=== PATIENT | female | born 1990 | race Caucasian/White ===

== ENCOUNTER 2020-05-13 05:31 | Emergency (ER) | payer OTHER, SELFPAY ==
--- NOTE | ~2020-05-13 | CT_ITS ---
EXAMINATION: CT abdomen pelvis w con INDICATION: Right lower quadrant pain TECHNIQUE: Computed tomographic images of the abdomen and pelvis were obtained after the administrati on of 100 cc of Omnipaque 350 intravenous contrast. The dose-length product (DLP) was 840.33 mGy-cm. Automated exposure control and iterative reconstruction technique were employed. COMPARISON: None available FINDINGS: Minimal dependent atelectasis is present in the lung bases. The heart size is normal. Calci fied mediastinal lymph nodes are consistent with old granulomatous disease. The liver is diffusely lo w in attenuation when compared with the spleen, consistent with hepatic steatosis. The spleen, pancre as, gallbladder, and adrenal glands are normal. The kidneys are unremarkable. There is a 2 mm at the right ureterovesicular junction which causes mild right hydroureter. No pathologically enlarged abdom inal or pelvic lymph nodes are identified. There is no free intraperitoneal gas or evidence of bowel obstruction. IMPRESSION: 1. 2 mm stone in the right ureterovesicular junction causing mild right hydroureter. Reviewed, dictated and finalized at location [facility]. IMPRESSION: 1. 2 mm stone in the right ureterovesicular junction causing mild right hydrour eter.
[2020-05-13 05:35] VITALS: BP 152/99; PULSE 86; RESP 18; TEMP 36.8; O2SAT 100
--- NOTE | 2020-05-13 05:45 | ED.ABDPAIN ---
HPI - Abdominal Pain General Chief Complaint: Abdominal Pain <Enrico Nolan MD - Last Filed: 05/16/20 05:52> Stated Complaint: lower abd pain <Enrico Nolan MD - Last Filed: 05/16/20 05:52> Time Seen by Provider: 05/13/20 05:36 <Enrico Nolan MD - Last Filed: 05/16/20 05:52> History of Present Illness HPI narrative: Sharp RLQ pain since early this morning. Awoke her from sleep. Radiates to the back. Associated with nausea. She does report urinary frequency for the past few days. No fever. No prior surgery. <Enrico Nolan MD - Last Filed: 05/16/20 05:52> Related Data Allergies/Adverse Reactions: Allergies Allergy/AdvReac Type Severity Reaction Status Date / Time No Known Allergies Allergy Verified 05/13/20 05:39 <Enrico Nolan MD - Last Filed: 05/16/20 05:52> Review of Systems Review of Systems: All systems reviewed & are unremarkable except as noted in HPI and below <Enrico Nolan MD - Last Filed: 05/16/20 05:52> Constitutional: Constitutional: Denies fever(s) <Enrico Nolan MD - Last Filed: 05/16/20 05:52> Cardiovascular: Cardiovascular: Denies chest pain <Enrico Nolan MD - Last Filed: 05/16/20 05:52> Respiratory: Respiratory: Denies dyspnea <Enrico Nolan MD - Last Filed: 05/16/20 05:52> Gastrointestinal: Gastrointestinal: Reports abdominal pain and Reports nausea <Enrico Nolan MD - Last Filed: 05/16/20 05:52> Genitourinary: Genitourinary: Denies hematuria, Reports nocturia and Denies dysuria <Enrico Nolan MD - Last Filed: 05/16/20 05:52> [facility] Social History Social History: Social History (Updated 05/13/20 @ 05:55 by Enrico Nolan MD) Smoking status: Never smoker <Enrico Nolan MD - Last Filed: 05/16/20 05:52> Exam Const: General: healthy appearing, no acute distress and alert <Enrico Nolan MD - Last Filed: 05/16/20 05:52> Orientation/consciousness: patient oriented x3 <Enrico Nolan MD - Last Filed: 05/16/20 05:52> HENMT: Head: normal to inspection <Enrico Nolan MD - Last Filed: 05/16/20 05:52> Neck: Neck: normal visual inspection and no lymphadenopathy <Enrico Nolan MD - Last Filed: 05/16/20 05:52> Chest: Chest palpation & inspection: no tenderness <Enrico Nolan MD - Last Filed: 05/16/20 05:52> Resp: Effort & Inspection: normal respiratory effort <Enrico Nolan MD - Last Filed: 05/16/20 05:52> Auscultation: clear to auscultation bilaterally, no rales, no rhonchi and no wheezes <Enrico Nolan MD - Last Filed: 05/16/20 05:52> Cardio: Jugular venous distension: no JVD <Enrico Nolan MD - Last Filed: 05/16/20 05:52> Rate: regular rate <Enrico Nolan MD - Last Filed: 05/16/20 05:52> Rhythm: regular rhythm <Enrico Nolan MD - Last Filed: 05/16/20 05:52> Heart sounds: no murmurs <Enrico Nolan MD - Last Filed: 05/16/20 05:52> GI: Inspection: non-distended <Enrico Nolan MD - Last Filed: 05/16/20 05:52> GI Palp: Yes Soft to palpation and No Tenderness to palpation present (GI) <Enrico Nolan MD - Last Filed: 05/16/20 05:52> Skin: General skin exam: normal color <Enrico Nolan MD - Last Filed: 05/16/20 05:52> Neuro: General: patient oriented x3 and moves all extremities <Enrico Nolan MD - Last Filed: 05/16/20 05:52> Speech: normal speech <Enirco Nolan MD - Last Filed: 05/16/20 05:52> Extrem: General: no edema <Enrico Nolan MD - Last Filed: 05/16/20 05:52> Psych: Appearance: well kempt <Enrico Nolan MD - Last Filed: 05/16/20 05:52> Affect: normal affect <Enrico Nolan MD - Last Filed: 05/16/20 05:52> Course Reevaluation(s) Reevaluation #1: Patient states that she feels alot better. I discussed with her and mother that she was found to have a distal ureteral calculus. I have answered all questions and concerns. She is ready a
[2020-05-13 05:57] LABS: Basophils Absolute Auto 0.1 K/mm3 (0.0-0.1); Basophils Percent Auto 1.2 % (0.2-1.2); Eosinophils Absolute Auto 0.2 K/mm3 (0-0.3); Hematocrit 43.8 % (37.0-47.0); Hemoglobin 14.1 g/dL (12.0-15.0); Immature Granulocyte Absolute 0.03 K/mm3 (0.00-0.031); Immature Granulocyte Percent A 0.3 % (0-0.5); Mean Corpuscular HGB Conc 32.2 g/dl (32-36); Mean Corpuscular Hemoglobin 28.1 pg (26-34); Mean Corpuscular Volume 87.3 fl (80-100); Mean Platelet Volume 10.2 fl (7.4-10.4); Monocytes Absolute Auto 0.9 K/mm3 (0.1-0.6); Monocytes Percent Auto 10.2 % (2.6-8.5); Neutrophils Absolute Auto 4.5 K/mm3 (1.3-6.7); Neutrophils Percent Auto 48.3 % (45.5-73.1); Platelet Count Result 323 k/mm3 (150-375); Red Blood Count 5.02 M/mm3 (4.2-5.4); Red Cell Distribution Width 13.2 % (11.5-14.5); White Blood Count 9.2 K/mm3 (4.5-10.0)
[2020-05-13] MEDS: KETOROLAC 30 MG/ML VIAL (*BKC) IV PUSH (05:59)
[2020-05-13 06:08] LABS: Alanine Aminotransferase 22 U/L (4-35); Albumin Level 4.3 g/dL (3.5-5.1); Alkaline Phosphatase 73 U/L (38-126); Aspartate Amino Transferase 29 U/L (14-36); Bilirubin,Total 1.1 mg/dL (0.2-1.3); Blood Urea Nitrogen 10 mg/dL (7-17); Carbon Dioxide 22 mmol/L (22-30); Chloride 106 mmol/L (98-107); Estimated Glomerular Filt Rate > 60; Glucose 107 mg/dL (65-105); Lipase 95 U/L (23-300); Sodium 136 mmol/L (137-145)
[2020-05-13 06:18] LABS: Add Urine Microscopic? NO; Appearance Urine Clear (Clear); Bilirubin Urine Negative (Negative); Blood Urine Negative (Negative); Color Urine Yellow (Yellow); Glucose Urine UA Negative (Negative); Ketones Urine Negative (Negative); Leukocyte Esterase Ur Negative LEU/UL (Negative); Nitrate Urine Negative (Negative); Protein Urine Negative (Negative); Specific Grav Ur 1.013 (1.001-1.035); Urobilinogen Urine Negative mg/dL (<2.0)
[2020-05-13 08:30] VITALS: BP 148/86; PULSE 80; RESP 20; O2SAT 100
== END 2020-05-13 08:32 | disposition home or self-care (01) ==
PROVIDERS: Emergency Medicine; Emergency Provider General Practice
DX: N13.2 Hydronephrosis with renal and ureteral calculous obstruction (principal)
CPT/HCPCS: 36415; 74177; 80053; 81003; 81025; 83690; 85025; 96374; 99284; J1885; Q9967

== ENCOUNTER 2021-01-04 11:18 | Outpatient (CLI) | payer OTHER, SELFPAY ==
--- NOTE | ~2021-01-04 | XR_ITS ---
XR hysterosalpingogram DATE: 01/04/2021 13:01 INDICATION: Pro-creative management TECHNIQUE: Fluoroscopy was provided for hysterosalpingogram procedure 0.7 minutes fluoroscopy time Image calculus 6 DAP: 12.869. COMPARISON: None FINDINGS: The uterine cavity appears normally shaped. There is a filling defect in the uterine cavity which might represent polyp or air bubble. Consider correlation with pelvic ultrasound. The fallopian tubes are opacified bilaterally and are of normal caliber. There is bilateral free jennie toneal spillage. IMPRESSION: Polyp versus air bubble and uterine cavity; consider sonographic correlation Patent fallopian tubes Reviewed, dictated and finalized at [facility]. Reviewed, dictated and finalized at location [facility]. [employer] IMPRESSION: Polyp versus air bubble and uterine cavity; consider sonographic co rrelation Patent fallopian tubes
[2021-01-04 12:22] LABS: Beta HCG Quantitative < 2.39 mIU/ML
--- NOTE | 2021-01-04 13:23 | PM.PROC ---
Procedure Note - Detailed Date of procedure: 01/04/21 Pre-op diagnosis: procreative management Post-op diagnosis: same Procedure performed: Hysterosalpingogram Description of procedure: Patient was on the fluoroscopic table. A speculum was placed in the vagina. The cervix was cleaned with Betadine. A catheter was placed the intrauterine cavity and the balloon was inflated at the tip of the catheter. The radiologist was present and began to capture images. Radiopaque dye was then instilled into the intrauterine cavity. The above findings were noted. When dye injection was completed. The balloon catheter was collapsed and the catheter was withdrawn. A final image the into atrial cavity was captured. The speculum had been was drawn prior to injection of the dye. Speculum and catheter were removed completely. The procedure was terminated. Anesthesia: none Surgeon: Tanja Schneider MD Estimated blood loss (mL): 0 Drains: No Packing: No Pathology: none sent Complications: No immediate complications Condition: stable Findings: Both tubes were patent, radiopaque dye was observed spilling into the pelvic cavity bilaterally at the end of the tubes. There was a normal-appearing endometrial cavity..
== END 2021-01-04 11:19 | disposition home or self-care (01) ==
PROVIDERS: Visit Provider Obstetrics & Gynecology
DX: Z01.89 Encounter for other specified special examinations (principal); Z31.9 Encounter for procreative management, unspecified
CPT/HCPCS: 36415; 58340; 74740; 84702

== ENCOUNTER 2022-06-24 07:08 | Inpatient (IN) | payer OTHER, SELFPAY ==
[2022-06-24] VITALS (18 sets, daily range): BP systolic 101–119; BP diastolic 64–82; PULSE 74–98; TEMP 36.3–36.6; BMI 34.3
--- OUTSIDE RECORDS SUMMARY | 2022-06-24 07:13 | XMS_ITS | Encounter Summary ---
:1990 Author Care Team Providers Name Role Phone Maximino Hernandez Primary Care Provider [phone] Reason for Visit None recorded. Assessment and Plan 1. IVF - in-vitro fertilization pregnan cy ? US, obstetric, biophysical profile + non-stress test Discussion Note: None recorded.Patient educational handouts: No information available. Plan of Care Reminders Provider Appointments Nst 06/28/2022 Nst, , EQUIP 1:30PM ? U/S OB BPP 06/28/2022 Ultrasound Two, TECH 2:00PM ? Ob Routine 06/28/2022 Jihan Yoli Ruggieroe , CNM 2:30PM ? U/S OB BPP 07/05/2022 Ultrasound Two, TECH 2:30PM ? Nst 07/05/2022 Nst, , EQUIP 2:00PM ? Ob Routine 07/05/2022 Jihan E Cowden , CNM 3:00PM ? Ob Routine 07/11/2022 Jihan E Sonali , CNM 8:45AM ? U/S OB BPP 07/12/2022 Ultrasound Two, TECH 1:30PM ? Nst 07/12/2022 Nst, , EQUIP 1:00PM Lab None recorded. ? ? Referral None recorded. ? ? Procedures None recorded. ? ? Surgeries None recorded. ? ? Imaging US, Obstetric, Biophysical 06/21/2022 Marycarmen alcantara Profile + Non-stress Test Medications Name Start Date ? ? aspirin ? + DHA ? Medications Administered None recorded. Vitals None recorded. Results Lab Results
--- OUTSIDE RECORDS SUMMARY | 2022-06-24 07:13 | XMS_ITS ---
:1990 Author Care Team Providers Name Role Phone LARON ANTUNEZ Primary Care Provider [phone] Allergies Code Code System Name Reaction Severity Status Onset NKDA ? Notes: NO KNOWN ALLERGIES (Active) Com ment: Location: [facility]; Medications Name Status Start Date Stop Date ? ? adapalene 0.1 % topical cream Completed ? amoxicillin 250 mg capsule Completed ? 10/10 amoxicillin 500 mg capsule Completed ? 10/10 ascorbic acid (vitamin C) 500 mg chewable tablet Completed ? 01/25/2022 aspirin Active ? Not available aspirin 81 mg tablet,delayed release Completed ? 10/10/2020 azithromycin 250 mg tablet Completed ? 01/25 cholecalciferol (vitamin D3) 50 mcg (2,000 unit) tablet Complete d ? 01/25/2022 chorionic gonadotropin, human 10,000 unit intramuscular Complete d ? 01/25/2022 solution clomiphene citrate 50 mg tablet Completed ? 11/16/2020 Co Q-10 Completed ? 01/25/2022 cyclobenzaprine 5 mg tablet Completed ? 03/31 DOK 100 mg capsule Completed ? 11/16/2020 Gonal-F RFF Redi-Ject 900 unit/1.5 mL subcutaneous pen Completed ? 01/25/2022 injector hydrocodone 5 mg-acetaminophen 325 mg tablet Completed ? 10/10/2020 ibuprofen 600 mg tablet Completed ? 10/10/20 20 itraconazole 100 mg capsule Completed ? 01/02 TAKE 1 CAPSULE BY MOUTH TWICE DAILY letrozole 2.5 mg tablet Completed ? 05/30/20 21 TAKE 2 TABLETS BY MOUTH DAILY ON DAYS 5 THROUGH 9 leuprolide 1 mg/0.2 mL subcutaneous kit Completed ? 01/25/2022 Menopur 75 unit subcutaneous solution Completed ? 01/25/2022 metformin 500 mg table
--- OUTSIDE RECORDS SUMMARY | 2022-06-24 07:13 | XMS_ITS | Encounter Summary ---
:1990 Author Care Team Providers Name Role Phone Maximino Hernandez Primary Care Provider [phone] Reason for Visit None recorded. Assessment and [...] 2:00PM ? Ob Routine 07/05/2022 Jihan E Sonali , CNM 3:00PM ? Ob Routine 07/11/2022 Jihan Yoli SnowLadoga , CNM 8:45AM ? U/S OB BPP 07/12/2022 Ultrasound Two, TECH 1:30PM ? Nst 07/12/2022 Nst, , EQUIP 1:00PM Lab None recorded. ? ? Referral None recorded. ? ? Procedures None recorded. ? ? Surgeries None recorded. ? ? Imaging US, Obstetric, Biophysical 06/07/2022 Marycarmen alcantara Profile + Non-stress Test Medications Name Start Date ? ? aspirin ? + DHA ? Medications Administered None recorded. Vitals None recorded. Results Lab Results
--- OUTSIDE RECORDS SUMMARY | 2022-06-24 07:13 | XMS_ITS | Encounter Summary ---
:1990 Author Care Team Providers Name Role Phone Maximino Hernandez Primary Care Provider [phone] Reason for Visit OB visit OB [id number] EDC 07/04/2022 LMP 09/29/2021 e mbro transfer 10/16/2021 Assessment and Plan Assessment Note Patient is _37__weeks . Discuss ed plan. 1. Routine care Discussion Note: None recorded.Patient educational handouts: No information available. Plan of Care Reminders Provider Appointments Nst 06/28/2022 1:30PM Nst, , EQUIP ? U/S OB BPP 06/28/2022 2:00PM Ultrasound T wo, TECH ? Ob Routine 06/28/2022 2:30PM Jihangio wallace, CNM ? U/S OB BPP 07/05/2022 2:30PM Ultrasound T wo, TECH ? Nst 07/05/2022 2:00PM Nst, , EQUIP ? Ob Routine 07/05/2022 3:00PM Jihan wallace, CNM ? Ob Routine 07/11/2022 8:45AM Jihan wallace, CNM ? U/S OB BPP 07/12/2022 1:30PM Ultrasound T wo, TECH ? Nst 07/12/2022 1:00PM Nst, , EQUIP Lab None recorded. ? ? Referral None recorded. ? ? Procedures None recorded. ? ? Surgeries None recorded. ? ? Imaging None recorded. ? ? Medications Name Start Date ? ? aspirin ? + DHA ? Medications Administered None recorded. Vitals Height Weight BMI Blood Pressure 5 ft 6.75 in 192 lbs 30.3 kg/m2 123/78 mm[Hg] Results Lab Results None recorded. Allergies Code Code System Name Reaction Severity Onset NKDA ? ? ? Notes: NO KNOWN ALLERGIES (Active) Com ment: Location: [facility]
--- OUTSIDE RECORDS SUMMARY | 2022-06-24 07:13 | XMS_ITS | Encounter Summary ---
:1990 Author Care Team Providers Name Role Phone Maximino Hernandez Primary Care Provider [phone] Reason for Visit None recorded. Assessment and Plan 1. Pre-existing maternal disease compli cating ? US, obstetric, follow-up Discussion Note: None recorded.Patient educational handouts: No information available. Plan of Care Reminders Provider Appointments Nst 06/28/2022 1:30PM Nst, , EQUIP ? U/S OB BPP 06/28/2022 2:00PM Ultrasound T wo, TECH ? Ob Routine 06/28/2022 2:30PM Jihan E gle, CNM ? U/S OB BPP 07/05/2022 2:30PM Ultrasound T wo, TECH ? Nst 07/05/2022 2:00PM Nst, , EQUIP ? Ob Routine 07/05/2022 3:00PM Jihan E Prin gle, CNM ? Ob Routine 07/11/2022 8:45AM Jihan E gle, CNM ? U/S OB BPP 07/12/2022 1:30PM Ultrasound T wo, TECH ? Nst 07/12/2022 1:00PM Nst, , EQUIP Lab None recorded. ? ? Referral None recorded. ? ? Procedures None recorded. ? ? Surgeries None recorded. ? ? Imaging US, Obstetric, Follow-up 06/14/2022 Mirella velez Medications Name Start Date ? ? aspirin ? + DHA ? Medications Administered None recorded. Vitals None recorded. Results Lab Results None recorded. Allergies Code Code System Name Reaction Severity Onset NKDA ? ? ? Notes: NO KNOWN ALLERGIES (Active) Com ment: Location: [facility]; Problems Name Status Onset Date Source ? Active 01/01/2022 ? Acute COVID-19 Active 04/11/2022 ? Uterine Fibroids Affecting Ac
--- OUTSIDE RECORDS SUMMARY | 2022-06-24 07:13 | XMS_ITS | Encounter Summary ---
:1990 Author Care Team Providers Name Role Phone Maximino Hernandez Primary Care Provider [phone] Reason for Visit None recorded. Assessment and Plan 1. IVF - in-vitro fertilization pregnan cy ? non-stress test Discussion Note: None recorded.Patient educational handouts: No information available. Plan of Care Reminders Provider Appointments Nst 06/28/2022 1:30PM Nst, , EQUIP ? U/S OB BPP 06/28/2022 2:00PM Ultrasound T wo, TECH ? Ob Routine 06/28/2022 2:30PM Jihan E Prin gle, CNM ? /S OB BPP 07/05/2022 2:30PM Ultrasound T wo, TECH ? Nst 07/05/2022 2:00PM Nst, , EQUIP ? Ob Routine 07/05/2022 3:00PM Jihan E Prin gle, CNM ? Ob Routine 07/11/2022 8:45AM Jihan E Prin gle, CNM ? U/S OB BPP 07/12/2022 1:30PM Ultrasound T wo, TECH ? Nst 07/12/2022 1:00PM Nst, , EQUIP Lab None recorded. ? ? Referral None recorded. ? ? Procedures None recorded. ? ? Surgeries None recorded. ? ? Imaging Non-stress Test 06/14/2022 [facility] Medications Name Start Date ? ? aspirin ? + DHA ? Medications Administered None recorded. Vitals None recorded. Results Lab Results None recorded. Allergies Code Code System Name Reaction Severity Onset NKDA ? ? ? Notes: NO KNOWN ALLERGIES (Active) Com ment: Location: [facility]; Problems Name Status Onset Date Source ? Active 01/01/2022 ? Acute COVID-19 Active 04/11/2022 ? Uterine Fibroids Affecting Active ? ?
--- OUTSIDE RECORDS SUMMARY | 2022-06-24 07:13 | XMS_ITS | Encounter Summary ---
:1990 Author Care Team Providers Name Role Phone Maximino Hernandez Primary Care Provider [phone] Reason for Visit None recorded. Assessment and Plan 1. COVID-19 ? US, obstetric, follow-up Discussion Note: None recorded.Patient educational handouts: No information available. Plan of Care Reminders Provider Appointments Nst 06/28/2022 1:30PM Nst, , EQUIP ? U/S OB BPP 06/28/2022 2:00PM Ultrasound T wo, TECH ? Ob Routine 06/28/2022 2:30PM Jihan E gle, CNM ? /S OB BPP 07/05/2022 [...] recorded. ? ? Imaging US, Obstetric, Follow-up 05/16/2022 Mirella velez Medications Name Start Date ? ? aspirin ? + DHA ? Medications Administered None recorded. Vitals None recorded. Results Lab Results None recorded. Allergies Code Code System Name Reaction Severity Onset NKDA ? ? ? Notes: NO KNOWN ALLERGIES (Active) Com ment: Location: [facility]; Problems Name Status Onset Date Source ? Active 01/01/2022 ? Acute COVID-19 Active 04/11/2022 ? Uterine Fibroids Affecting Active ? ?
--- OUTSIDE RECORDS SUMMARY | 2022-06-24 07:13 | XMS_ITS | Encounter Summary ---
:1990 Author Care Team Providers Name Role Phone Maximino Hernandez Primary Care Provider [phone] Reason for Visit OB visit Assessment and Plan Assessment Note Patient is ___weeks . Discussed plan. 1. Routine care Discussion Note: None [...] BMI Blood Pressure 5 ft 6.75 in 195 lbs 30.8 kg/m2 115/78 mm[Hg] Results Lab Results None recorded. Allergies Code Code System Name Reaction Severity Onset NKDA ? ? ? Notes: NO KNOWN ALLERGIES (Active) Com ment: Location: [facility]; Problems Name Status Onset Date Source ?
--- OUTSIDE RECORDS SUMMARY | 2022-06-24 07:13 | XMS_ITS | Encounter Summary ---
:1990 Author Care Team Providers Name Role Phone Maximino Hernandez Primary Care Provider [phone] Reason for Visit OB visit OB [id number] EDC 07/04/2022 LMP 09/29/2021 Assessment and Plan Assessment Note Patient is _38__weeks . Discuss ed plan. 1. Routine care [...] , EQUIP ? Ob Routine 07/05/2022 3:00PM Jihangio wallace, CNM ? Ob Routine 07/11/2022 8:45AM [...] ft 6.75 in 195 lbs 30.8 kg/m2 125/79 mm[Hg] Results Lab Results None recorded. Allergies Code Code System Name Reaction Severity Onset NKDA ? ? ? Notes: NO KNOWN ALLERGIES (Active) Com ment: Location: [facility]; Problems
--- OUTSIDE RECORDS SUMMARY | 2022-06-24 07:13 | XMS_ITS | Encounter Summary ---
:1990 Author Care Team Providers Name Role Phone Maximino Hernandez Primary Care Provider [phone] Reason for Visit OB visit OB [id number] EDC 07/04/2022 Assessment and Plan Assessment Note Patient is ___weeks . Discussed plan. 1. Routine care Discussion Note: None recorded.Patient educational handouts: No information available. Plan of Care Reminders Provider Appointments Nst 06/28/2022 1:30PM Nst, , EQUIP ? U/S OB BPP 06/28/2022 2:00PM Ultrasound T wo, TECH ? Ob Routine 06/28/2022 2:30PM Jihan wallace, CNM ? / OB BPP 07/05/2022 2:30PM Ultrasound T wo, TECH ? Nst 07/05/2022 2:00PM Nst, , EQUIP ? Ob Routine 07/05/2022 3:00PM Jihangio wallace, CNM ? Ob Routine 07/11/2022 8:45AM Jihan wallace, CNM ? / OB BPP 07/12/2022 1:30PM Ultrasound T wo, [...] ft 6.75 in 192 lbs 30.3 kg/m2 122/76 mm[Hg] Results Lab Results None recorded. Allergies Code Code System Name Reaction Severity Onset NKDA ? ? ? Notes: NO KNOWN ALLERGIES (Active) Com ment: Location: [facility]; Problems
--- OUTSIDE RECORDS SUMMARY | 2022-06-24 07:13 | XMS_ITS | Encounter Summary ---
:1990 Author Care Team Providers Name Role Phone Maximino Hernandez Primary Care Provider [phone] Reason for Visit None recorded. Assessment and [...] None recorded. ? ? Imaging Non-stress Test 06/07/2022 [place] Medications Name Start Date ? ? aspirin ? + DHA ? Medications Administered None recorded. Vitals None recorded. Results Lab Results None recorded. Allergies Code Code System Name Reaction Severity Onset NKDA ? ? ? Notes: NO KNOWN ALLERGIES (Active) Com ment: Location: [facility]; Problems Name Status Onset Date Source ? Active 01/01/2022 ? Acute COVID-19 Active 04/11/2022 ? Uterine Fibroids Affecting Active ? ?
--- OUTSIDE RECORDS SUMMARY | 2022-06-24 07:14 | XMS_ITS | Encounter Summary ---
:1990 Author Care Team Providers Name Role Phone Maximino Hernandez Primary Care Provider [phone] Reason for Visit OB visit OB [id number] EDC 07/04/2022 LMP 09/29/2021 Assessment and Plan Assessment Note Patient is _32__weeks . Discuss ed plan. 1. Routine care [...] BMI Blood Pressure 5 ft 6.75 in 193 lbs 30.5 kg/m2 128/72 mm[Hg] Results Lab Results None recorded. Allergies Code Code System Name Reaction Severity Onset NKDA ? ? ? Notes: NO KNOWN ALLERGIES (Active) Com ment: Location: [facility]; Problems
--- OUTSIDE RECORDS SUMMARY | 2022-06-24 07:14 | XMS_ITS | Encounter Summary ---
:1990 Author Care Team Providers Name Role Phone Maximino Hernandez Primary Care Provider [phone] Reason for Visit None recorded. Assessment and [...] recorded. ? ? Imaging US, Obstetric, Follow-up 04/17/2022 Mirella velez Medications Name Start Date ? ? aspirin ? + DHA ? Medications Administered None recorded. Vitals None recorded. Results Lab Results None recorded. Allergies Code Code System Name Reaction Severity Onset NKDA ? ? ? Notes: NO KNOWN ALLERGIES (Active) Com ment: Location: [facility]; Problems Name Status Onset Date Source ? Active 01/01/2022 ? Acute COVID-19 Active 04/11/2022 ? Uterine Fibroids Affecting Active ? ?
--- OUTSIDE RECORDS SUMMARY | 2022-06-24 07:14 | XMS_ITS | Encounter Summary ---
:1990 Author Care Team Providers Name Role Phone Maximino Hernandez Primary Care Provider [phone] Reason for Visit OB visit Assessment and Plan 1. In vitro fertilization 2. Uterine fibroids affecting Discussion Note: None recorded.Patient educational handouts: No [...] BMI Blood Pressure 5 ft 6.75 in 194 lbs 30.6 kg/m2 113/76 mm[Hg] Results Lab Results None recorded. Allergies Code Code System Name Reaction Severity Onset NKDA ? ? ? Notes: NO KNOWN ALLERGIES (Active) Com ment: Location: [facility]; Problems Name Status Onset Date Source ? Active 01/01/2022 ?
[2022-06-24 07:59] LABS: Basophils Percent Auto 0.4 % (0.2-1.2); Eosinophils Percent Auto 0.3 % (0-4.4); Hematocrit 35.2 % (37.0-47.0); Hemoglobin 12.2 g/dL (12.0-15.0); Immature Granulocyte Absolute 0.08 K/mm3 (0.00-0.031); Immature Granulocyte Percent A 0.8 % (0-0.5); Lymphocytes Absolute Auto 2.05 K/mm3 (0.9-3.2); Lymphocytes Percent Auto 19.6 % (18.3-44.2); Mean Corpuscular HGB Conc 34.7 g/dl (32-36); Mean Corpuscular Hemoglobin 29.8 pg (26-34); Mean Corpuscular Volume 85.9 fl (80-100); Mean Platelet Volume 11.6 fl (7.4-10.4); Monocytes Absolute Auto 0.9 K/mm3 (0.1-0.6); Monocytes Percent Auto 8.8 % (2.6-8.5); Neutrophils Absolute Auto 7.4 K/mm3 (1.3-6.7); Neutrophils Percent Auto 70.1 % (45.5-73.1); Platelet Count Result 197 k/mm3 (150-375); Red Cell Distribution Width 13.7 % (11.5-14.5); White Blood Count 10.5 K/mm3 (4.5-10.0)
--- NOTE | 2022-06-24 08:03 | WPDOBADMIT ---
Obstetrics - Admit Note Admission Note: record reviewed. No pertinent additions to the history and/or any subsequent changes in the physical findings that are not consistent with the expected course of the were found. IOL for cholestasis, IVF plan cervadil Additions to the history and/or subsequent changes in the physical findings follow. None.
[2022-06-24] MEDS: DINOPROSTONE 10 MG VAG INSERT VAGINAL (08:26)
--- NOTE | 2022-06-24 08:43 | LDADM ---
This patient, Karolina Eugene, was admitted to Labor/Delivery/Recovery 107 on 06/24/22 at 07:08. Plans for labor, pain management and were discussed with patient. Patient/family oriented to hospital policies and general routines including ID bracelet, bed and alarms, visiting hours, pain management, procedures, bathroom and other care routines, personal items, smoking policy, room service/diet and guest tray routines, security routines, and visiting hours. Patient/Family are encouraged to report perceived risks to care and to ask questions if they do not understand what they are told or what they should do. See [facility] for further documentation.
[2022-06-24 09:28] LABS: Rapid Plasma Reagin Non-Reactive (NonReactive)
--- NOTE | 2022-06-24 16:43 | WPDANESEPP ---
Anes - Eval Pre Procedure Procedure: labor epidural Date/Time: 06/24/22 16:43 Surgeon: celestino Preop Diagnosis: pain during labor Pre Op Diagnosis: IOL Patient Data Age: 31 Gender: F Height: 1.6 m Weight: 88 kg Last Vital Signs Pulse 81 06/24/22 16:31 BP 116/70 06/24/22 16:31 Allergies Allergy/AdvReac Type Severity Reaction Status Date / Time No Known Allergies Allergy Verified 06/12/22 14:42 Home Medications Medication Instructions Recorded Confirmed Type aspirin 81 mg tablet,delayed 81 mg PO DAILY 06/12/22 06/12/22 History release (Oksana Low Dose Aspirin) prenat.vits,blair,jox-ppue-qkuia 1 tablet PO DAILY 06/12/22 06/12/22 History Laboratory Tests 06/24/22 06/24/22 06/24/22 07:54 07:54 07:54 WBC 10.5 K/mm3 H K/mm3 (4.5-10.0) RBC 4.10 M/mm3 L M/mm3 (4.2-5.4) Hgb 12.2 g/dL g/dL (12.0-15.0) Hct 35.2 % L % (37.0-47.0) MCV 85.9 fl fl (80-100) MCH 29.8 pg pg (26-34) MCHC 34.7 g/dl g/dl (32-36) RDW 13.7 % % (11.5-14.5) Plt Count 197 k/mm3 k/mm3 (150-375) MPV 11.6 fl H fl (7.4-10.4) Immature Gran % (Auto) 0.8 % H % (0-0.5) Neut % (Auto) 70.1 % % (45.5-73.1) Lymph % (Auto) 19.6 % % (18.3-44.2) [place] % (Auto) 8.8 % H % (2.6-8.5) Eos % (Auto) 0.3 % % (0-4.4) Baso % (Auto) 0.4 % % (0.2-1.2) Lymph # (Auto) 2.05 K/mm3 K/mm3 (0.9-3.2) [place] # (Auto) 0.9 K/mm3 H K/mm3 (0.1-0.6) Eos # (Auto) 0.0 K/mm3 K/mm3 (0-0.3) Baso # (Auto) 0.0 K/mm3 K/mm3 (0.0-0.1) Abs Immat Gran (auto) 0.08 K/mm3 H K/mm3 (0.00-0.031) Absolute Neuts (auto) 7.4 K/mm3 H K/mm3 (1.3-6.7) Absolute Nucleated RBC 0.0 K/mm3 K/mm3 (0.0-0.012) Nucleated RBC % 0.0 % % (0.0-0.2) RPR Non-reactive (NonReactive) Blood Type O Positive Antibody Screen Negative Patient hx anesthesia problems: none Family hx anesthesia problems: none Results Review: All pre-operative results and documents have been reviewed as part of the pre-operative evaluation. 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
[2022-06-24] MEDS: LACTATED RINGERS 1,000 ML 125 ML IV CONT (23:03)
[2022-06-24] MEDS: OXYTOCIN 30 UNITS/NS 500 ML 30 UNITS/500 ML BAG 6 UNITS IV CONT (23:04)
[2022-06-25] VITALS (101 sets, daily range): BP systolic 88–128; BP diastolic 37–92; PULSE 64–137; RESP 16–18; TEMP 36.3–37.4; O2SAT 92–100
[2022-06-25] MEDS: ONDANSETRON INJ 4 MG/2 ML VIAL IV PUSH (03:50)
[2022-06-25] MEDS: LACTATED RINGERS 1,000 ML 125 ML IV CONT (06:16)
--- NOTE | 2022-06-25 08:43 | PM.OBPNLAB ---
Pain Control Date/time seen: 06/25/22 08:43 pt comfortable with epidural continue with induction
--- NOTE | 2022-06-25 09:41 | PM.OBPRVD ---
OB - Delivery Note Procedure Delivery date: 06/25/22 Procedure: Vaginal delilvery Events: Other (Cholestasis, IVF) Induction method: Per Pitocin Protocol and Per Cervidil Protocol Delivery monitor: External FHT and External Uterine Route of delivery: Episiotomy description: None Laceration Description: Labial (Bilateral) Delivery repair: vicryl Specimen: Yes Quantitative Blood Loss (ml): 75 Anesthesia type: Epidural Disposition: Floor Baby Date of : 06/25/22 Time of : 09:17 Weeks of gestation at delivery: 38 gender: Male Weight (pounds): 7 Weight (ounces): 7 presentation: vertex position: Right Occiput Posterior Placenta delivery description: Manual Removal Cord Vessel Description: 3 Vessels score one minute: 8 score five minutes: 9 Narrative: mom and baby in skin to skin in stable condition
[2022-06-25] MEDS: ceFAZolin 2 GM/D5W 50 ML 2 GM/50 ML BAG IVPB (09:54)
[2022-06-25] MEDS: OXYTOCIN 30 UNITS/NS 500 ML 30 UNITS/500 ML BAG 125 UNITS IV CONT (09:56)
[2022-06-25] MEDS: WITCH HAZEL 40 PADS 1 PAD TOPICAL (11:39)
[2022-06-25] MEDS: BENZOCAINE 20% AER SPR (*SP) 56 GM CAN 1 SPRAY TOPICAL (11:39)
--- NOTE | 2022-06-25 15:16 | PC.NURSE ---
[id number] Consulted with patient to assess needs related to . Mother led conversation with her experience with feeding baby so far. Mother works well with her infant with encouragement. Reviewed working with , breast, nipples and how to protect the nipples with an optimal deep latch, good positioning, and good hand washing. Encouraged understanding the benefits of skin to skin, responding to feeding cues, frequencies of feeding 8-12 times in 24 hours (approximately 2-3 hours), duration of feedings, milk production, intake/output feeding sheet and signs of adequate intake encouraging swallowing at the breast. Reviewed positioning and alignment, supporting breast, off-centered (asymmetrical latch) and leading with the chin with big open wide gape. latched optimally to the right breast in football position. Education given to mother of how to visualize suck/swallow ratios and drinking at the breast. Infant was able to maintain latch without discomfort to mother. Nipple care reviewed with optimal latch, good positioning and to have clean hands when touching the nipple/breast. Resources used to facilitate learning were used from the tool. Mother voiced understanding of the education shared, calling for assistance if the infant does not latch or if there is discomfort with . Reported to the primary RN.
[2022-06-25] MEDS: DOCUSATE SODIUM 100 MG CAPSULE PO (18:31)
[2022-06-25] MEDS: IBUPROFEN 600 MG TABLET PO (18:31)
[2022-06-25] MEDS: ACETAMINOPHEN 325 MG TABLET 650 MG PO (22:45)
[2022-06-26] VITALS: BP 106/68; PULSE 67; RESP 18; TEMP 36.6; O2SAT 100
[2022-06-26 03:55] VITALS: BP 108/70; PULSE 74; RESP 18; TEMP 36.2; O2SAT 99
[2022-06-26 04:27] LABS: Hematocrit 33.7 % (37.0-47.0); Hemoglobin 11.1 g/dL (12.0-15.0)
--- NOTE | 2022-06-26 07:36 | PM.OBPNVD ---
OB - PN: Subj Subjective Date/time seen: 06/26/22 07:36 s/p vaginal delivery day 1, cholestasis in OB - PN: Obj Data Labs CBC & Chem 7: 06/26/22 03:35 Labs: Laboratory Results - last 24 hr 06/26/22 03:35 Hgb 11.1 L Hct 33.7 L OB - PN A/P Plan day: 1 Plan: routine care Time Spent With Patient Time: Total time spent is greater than 50% in coordination of care (as documented) at patient's floor/unit and/or counseling patient: Review of Systems Review of Systems: All systems reviewed & are unremarkable except as noted in HPI and below Exam Const: General: cooperative, healthy appearing and comfortable
[2022-06-26 08:05] VITALS: BP 116/75; PULSE 67; RESP 16; TEMP 36.5; O2SAT 99
[2022-06-26] MEDS: MULTIVIT/MIN/PREN/FOL AC/IRON TABLET 1 TAB PO (08:12)
[2022-06-26] MEDS: DOCUSATE SODIUM 100 MG CAPSULE PO ×2 (08:12→16:18)
--- NOTE | 2022-06-26 08:53 | WPDANLDPN2 ---
Anes-Prog Note L&D Date/Time: 06/26/22 08:53 Comfortable throughout: labor and delivery Neuraxial method: epidural Epidural/Spinal procedure site: clean & non-tender Neuro status: Neuro function grossly intact. Cardiovascular status: normal Respiratory status: normal Airway patency: baseline Mental status: baseline Post-Op hydration status: normal Vital Signs: Last Vital Signs Temp 36.2 C L 06/26/22 03:55 Pulse 74 06/26/22 03:55 Resp 18 06/26/22 03:55 BP 108/70 06/26/22 03:55 Pulse Ox 99 06/26/22 03:55 O2 Del Method Room Air 06/26/22 08:10 Pain score (VAS): 1 Post-procedural complaints: none Patient feedback: Patient satisfied with anesthetic care.
--- NOTE | 2022-06-26 14:16 | PC.NURSE ---
[id number] Consulted with patient to assess needs related to . Mother led conversation with her experience with feeding baby so far. Mother works well with her infant with encouragement. Reviewed working with , breast, nipples and how to protect the nipples with an optimal deep latch, good positioning, and good hand washing. Encouraged understanding the benefits of skin to skin, responding to feeding cues, frequencies of feeding 8-12 times in 24 hours (approximately 2-3 hours), duration of feedings, milk production, intake/output feeding sheet and signs of adequate intake encouraging swallowing at the breast. Reviewed positioning and alignment, supporting breast, off-centered (asymmetrical latch) and leading with the chin with big open wide gape. Infant doesn't demonstrate big, wide open gape to latch optimally. All attempts were an ineffective latch. Nipple shield provided to mother due to ineffective . Reviewed good handwashing, cleaning the nipple shield and application. Discussed with mom the nipple shield precautions, possible complications associated with the risks and benefits. Reviewed practicing with a nipple shield, then without and how to protect the milk supply and production. Mom and baby guide referred to as a resource for using a nipple shield, out-patient services, community resources, stimulating milk production with pumping and when to call a provider. Mom voiced understanding of the importance of hand expression, nipple stimulation and initiating a pumping schedule if continues to nurse with the shield. Discussed mothers desires to feed infant. Primary RN is in the room to take for 24 hour testing and will check blood sugar and jaundice levels. Discussed with parents the possibility of needing to supplement until her milk comes in if the blood sugar or jaundice levels are too elevated. Reviewed the risk and benefits and parents are in agreement with each other to supplement with formula if needed. Resources used to facilitate learning were used from the mom and baby guide. Parents voiced understanding of the education shared. Reported to the primary RN Coco and discussed blood sugar at 49 mg/dl and the increased jaundice level tested with TCB. Serum bilirubin to be sent. Coco will follow up with patient on supplementation.
[2022-06-26 19:25] VITALS: BP 111/71; PULSE 62; RESP 16; TEMP 36.6
[2022-06-27 07:55] VITALS: BP 118/71; PULSE 76; RESP 18; TEMP 36.3; O2SAT 100
--- NOTE | 2022-06-27 08:25 | PC.NURSE ---
Patient viewed the discharge video Mother & Baby Care, The First Two Weeks . Patient was given the opportunity and encouraged to ask questions. Patient verbalized understanding of information shared and has been given the mother/baby guide for home reference.
[2022-06-27] MEDS: DOCUSATE SODIUM 100 MG CAPSULE PO (08:28)
[2022-06-27] MEDS: MULTIVIT/MIN/PREN/FOL AC/IRON TABLET 1 TAB PO (08:28)
--- NOTE | 2022-06-27 10:16 | PM.OBPNVD ---
OB - PN: Subj Subjective Date/time seen: 06/27/22 10:16 s/p vaginal delivery day 2 OB - PN: Obj Data Labs CBC & Chem 7: 06/26/22 03:35 OB - PN A/P Plan day: 2 Plan: routine care and discharge home Time Spent With Patient Time: Total time spent is greater than 50% in coordination of care (as documented) at patient's floor/unit and/or counseling patient: Review of Systems Review of Systems: All systems reviewed & are unremarkable except as noted in HPI and below Exam Const: General: cooperative, healthy appearing and comfortable
--- NOTE | 2022-06-27 10:17 | P.DS_ITS ---
DS: Admitting Diagnosis Discharge Date 06/27/22 Admitting Diagnosis IOL, cholestasis OB - DS: Summary OB Procedures : None OB Procedures Intrapartum: Spontaneous Vag Delivery OB Procedures: : None Time Spent with Patient Time attestation: Total time spent providing and/or coordinating discharge services: DS: Data Data Completed and Pending Pending studies at discharge: Pending at discharge 06/25/22 09:25 Surgical [PTH] Routine Discharge Plan Discharge Attending physician on discharge: Tanja Schneider Discharging Clinician: Jihan Lyon Patient Disposition: Home, Self-Care Activity: pelvic rest Diet: regular Patient Instructions: Antibiotic Form Stand Alone Forms: General Discharge Information Follow-up/Referrals: Jihan Lyon, CNM [Certified Nurse Photovoltaic Panel Installer] - 4 Weeks Discharge Medications: New ibuprofen 600 mg Tablet 600 mg PO Q6H PRN (Reason: Cramping) Qty: 30 0RF Continued #2 Tablet 1 tablet PO DAILY Discontinued aspirin [Oksana Low Dose Aspirin] 81 mg Tablet,Delayed Release (Dr/Ec) 81 mg PO DAILY Date of admission: 06/24/22 07:08 Primary Care Provider: Maximino Hernandez Admitting Provider: Tanja Schneider Attending physician on admission: Tanja Schneider Condition: Stable
--- NOTE | 2022-06-27 10:32 | PC.NURSE ---
[id number] Introductions were made, then consulted with patient to assess needs related to . Mother led the conversation with her?plans to feed?her infant and the?experience so far. Mother is attempting to breast with a nipple shield, pumping, feeding her the human milk with a syringe, then supplementing with formula until her full milk is in. Resources provided for inpatient and outpatient services using a resource guide and mom/baby guide. Parents voiced understanding of information and will call if there is a request for assistance. Reported to primary RN.
[2022-06-28 08:37] VITALS: BP 117/65; PULSE 77; RESP 20; TEMP 36.8; O2SAT 99
== END 2022-06-27 13:32 | disposition home or self-care (01) | DRG 805 ==
LOC: ANHLDR 07:19 → ANHOB2 06-25 12:12
PROVIDERS: Advanced Practice Midwife; Admitting Provider Obstetrics & Gynecology; PCP Internal Medicine; Visit Provider Obstetrics & Gynecology
DX: O26.62 Liver and biliary tract disorders in childbirth (principal); K83.1 Obstruction of bile duct; Z37.0 Single live birth; Z3A.38 38 weeks gestation of pregnancy; O36.8330 Maternal care for abnormalities of the fetal heart rate or rhythm, third trimester, not applicable or unspecified; O70.0 First degree perineal laceration during delivery; O69.81X0 Labor and delivery complicated by cord around neck, without compression, not applicable or unspecified
CPT/HCPCS: 36415; 85014; 85018; 85025; 86592; 86850; 86900; 86901; 88307; A9270; J0690; J2405; J2590; J2795; J7120

== ENCOUNTER → 2023-05-08 08:47 | Outpatient (CLI) | payer OTHER, SELFPAY ==
--- NOTE | ~2023-05-08 | US_ITS ---
Limited Abdominal Sonogram: Real-time sonographic imaging of the right upper quadrant was performed. Clinical History: Bile acid malabsorption syndrome Findings: The liver appears normal with no evidence of mass lesion or bile duct dilatation. Main por chuyita vein demonstrates normal direction of flow. The gallbladder is well distended, and appears normal with no evidence of gallstone or wall thickening. The common bile duct measures 4 mm. The visualize d pancreas, aorta, and IVC are unremarkable. Impression: No significant abnormality seen. Reviewed, dictated and finalized at location M. Impression: No significant abnormality seen.
== END ==
PROVIDERS: PCP Obstetrics & Gynecology; Visit Provider Obstetrics & Gynecology
DX: E78.70 Disorder of bile acid and cholesterol metabolism, unspecified (principal)
CPT/HCPCS: 76705

== ENCOUNTER → 2023-06-16 12:39 | Outpatient (CLI) | payer OTHER, SELFPAY ==
--- NOTE | ~2023-06-16 | US_ITS ---
Pelvic ultrasound. Clinical History: Pelvic pain Technique: Realtime transabdominal and transvaginal scanning of the pelvis was performed. Color flow Doppler and Doppler spectral analysis were performed. Findings: The uterus is anteverted. The endometrial stripe has a thickness of 5 mm. Exophytic fundal fibroid measures 4.5 x 4.3 x 4.1 cm. The right ovary measures 2.6 x 2.6 x 2.8 cm. No significant right ovarian or adnexal mass is seen. The left ovary measures 4.9 x 2.3 x 2.5 cm. No significant left ovarian or adnexal mass is seen. Vascular flow present in both ovaries on Doppler spectral analysis. There is no evidence of free fluid in the cul de sac. Impression: 4.5 cm exophytic fundal fibroid. Reviewed, dictated and finalized at [facility]. Impression: 4.5 cm exophytic fundal fibroid.
== END ==
PROVIDERS: PCP Family Medicine; Visit Provider Family Medicine
DX: R10.2 Pelvic and perineal pain (principal); D25.9 Leiomyoma of uterus, unspecified
CPT/HCPCS: 76830; 76856

== ENCOUNTER → 2023-11-05 11:22 | Outpatient (CLI) | payer OTHER, SELFPAY ==
--- NOTE | ~2023-11-05 | XR_ITS ---
Clinical Indication: Cough PA and lateral views of the chest: Comparison: None Findings: The lungs are clear, without evidence of focal consolidation or pleural effusion. Cardiome diastinal silhouette is within normal limits. Bones and soft tissues are unremarkable. Impression: Normal chest. Reviewed, dictated and finalized at location . EXPERIENCE RESEARCHER Impression: Normal chest.
== END ==
PROVIDERS: PCP Nurse Practitioner; Visit Provider Nurse Practitioner
DX: R05.9 Cough, unspecified (principal)
CPT/HCPCS: 71046

== ENCOUNTER 2024-04-08 15:59 | Outpatient (NON) | payer OTHER, SELFPAY ==
[2024-04-08 19:36] LABS: Appearance Urine Clear (Clear); Bacteria Urine 1+ /hpf; Bilirubin Urine Negative (Negative); Blood Urine 1+ (Negative); Color Urine Yellow (Yellow); Glucose Urine UA Negative (Negative); Ketones Urine Negative (Negative); Leukocyte Esterase Ur 2+ LEU/UL (Negative); Nitrate Urine Negative (Negative); Non Pathogenic Casts 0-2; Protein Urine Negative (Negative); Specific Grav Ur 1.019 (1.001-1.035); Squamous Epithelial Cell Urine None Seen /hpf (Few); Urobilinogen Urine 0.2 mg/dL (<2.0); WBC Urine >100 /hpf (0-3); pH Urine 5.5 (5.0-9.0)
[2024-04-08 19:53] LABS: Add Urine Microscopic? YES
== END 2024-04-08 16:00 | disposition home or self-care (01) ==
LOC: ANHGOSHLAB 16:00
PROVIDERS: PCP Family Medicine; Visit Provider Family Medicine
DX: R30.0 Dysuria (principal)
CPT/HCPCS: 81001; 87077; 87086; 87088; 87186

== ENCOUNTER 2024-05-08 07:43 | Outpatient (CLI) | payer OTHER, SELFPAY ==
[2024-05-08 08:46] LABS: Hematocrit 40.7 % (37.0-47.0); Hemoglobin 13.2 g/dL (12.0-15.0); Mean Corpuscular HGB Conc 32.4 g/dl (32-36); Mean Corpuscular Hemoglobin 27.6 pg (26-34); Mean Corpuscular Volume 85.1 fl (80-100); Mean Platelet Volume 10.7 fl (7.4-10.4); Platelet Count Result 286 k/mm3 (150-375); Red Blood Count 4.78 M/mm3 (4.2-5.4); Red Cell Distribution Width 13.5 % (11.5-14.5)
[2024-05-08 09:12] LABS: Alanine Aminotransferase 19 U/L (6-35); Albumin Level 4.1 g/dL (3.5-5.1); Alkaline Phosphatase 62 U/L (38-126); Anion Gap 6 mmol/L (4-12); Aspartate Amino Transferase 19 U/L (14-36); Bilirubin,Total 0.8 mg/dL (0.2-1.3); Blood Urea Nitrogen 11 mg/dL (7-17); Calcium 8.8 mg/dL (8.4-10.2); Carbon Dioxide 25 mmol/L (22-30); Chloride 107 mmol/L (98-107); Estimated Glomerular Filt Rate > 60; Glucose 91 mg/dL (65-110); Potassium 3.8 mmol/L (3.4-5.0); Sodium 138 mmol/L (137-145)
[2024-05-08 09:25] LABS: Beta HCG Quantitative < 2.39 mIU/ML
[2024-05-08 09:39] LABS: Hepatitis B Surface Antigen Negative (Negative); Thyroid Stimulating Hormone 0.933 uIU/mL (0.465-4.680); Vitamin D 25 Hydroxy 43.7 ng/mL
[2024-05-08 09:48] LABS: HIV 1/2 Ab P24 Ag Result Negative (Negative)
[2024-05-08 09:56] LABS: Hepatitis C Virus Antibody Negative (Negative)
[2024-05-08 10:24] LABS: Chlamydia trachomatis NOT DETECTED (NOT DETECTE); Neisseria gonorrhoeae PCR NOT DETECTED (NOT DETECTE)
[2024-05-10 13:15] LABS: Rapid Plasma Reagin Non-Reactive (NonReactive)
[2024-05-10 14:03] LABS: Thyroid Peroxidase Antibodies 1 IU/mL (<9)
[2024-05-10 16:44] LABS: Progesterone <0.5 ng/mL
[2024-05-10 19:03] LABS: FSH 10.9 mIU/mL; LH 4.5 mIU/mL; Prolactin 9.6 ng/mL
[2024-05-15 22:18] LABS: Estradiol, Ultrasensitive 43 pg/mL
== END 2024-05-08 07:44 | disposition home or self-care (01) ==
PROVIDERS: PCP Family Medicine
DX: E28.9 Ovarian dysfunction, unspecified (principal); Z13.29 Encounter for screening for other suspected endocrine disorder; Z13.1 Encounter for screening for diabetes mellitus; Z13.21 Encounter for screening for nutritional disorder; Z13.228 Encounter for screening for other metabolic disorders; Z13.0 Encounter for screening for diseases of the blood and blood-forming organs and certain disorders involving the immune mechanism; Z11.3 Encounter for screening for infections with a predominantly sexual mode of transmission; Z11.4 Encounter for screening for human immunodeficiency virus [HIV]; Z11.59 Encounter for screening for other viral diseases
CPT/HCPCS: 36415; 80053; 82306; 82670; 83001; 83002; 83036; 84144; 84146; 84443; 84702; 85027; 86376; 86592; 86703; 86803; 87340; 87491; 87591; G0432

== ENCOUNTER 2024-09-17 08:28 | Outpatient (CLI) | payer OTHER, SELFPAY ==
[2024-09-17 09:29] LABS: Beta HCG Quantitative 327.51 mIU/ML
== END 2024-09-17 08:29 | disposition home or self-care (01) ==
LOC: ANHLAB 08:30
PROVIDERS: PCP Family Medicine; Visit Provider Advanced Practice Midwife
DX: N91.2 Amenorrhea, unspecified (principal)
CPT/HCPCS: 36415; 84702

== ENCOUNTER 2025-05-22 05:01 | Inpatient (IN) | payer OTHER, SELFPAY ==
[2025-05-22] VITALS (154 sets, daily range): BP systolic 82–129; BP diastolic 51–107; PULSE 55–123; RESP 16; TEMP 36.2–37.1; O2SAT 97–100; BMI 34.0
[2025-05-22 05:49] LABS: Basophils Absolute Auto 0.1 K/mm3 (0.0-0.1); Basophils Percent Auto 0.7 % (0.2-1.2); Eosinophils Percent Auto 0.4 % (0-4.4); Hematocrit 36.5 % (37.0-47.0); Hemoglobin 11.5 g/dL (12.0-15.0); Immature Granulocyte Absolute 0.03 K/mm3 (0.00-0.031); Immature Granulocyte Percent A 0.3 % (0-0.5); Lymphocytes Absolute Auto 3.02 K/mm3 (0.9-3.2); Lymphocytes Percent Auto 28.8 % (18.3-44.2); Mean Corpuscular HGB Conc 31.5 g/dl (32-36); Mean Corpuscular Hemoglobin 24.7 pg (26-34); Mean Corpuscular Volume 78.5 fl (80-100); Mean Platelet Volume 11.9 fl (7.4-10.4); Monocytes Percent Auto 9.3 % (2.6-8.5); Neutrophils Absolute Auto 6.4 K/mm3 (1.3-6.7); Neutrophils Percent Auto 60.5 % (45.5-73.1); Platelet Count Result 264 k/mm3 (150-375); Red Blood Count 4.65 M/mm3 (4.2-5.4); White Blood Count 10.5 K/mm3 (4.5-10.0)
[2025-05-22] MEDS: OXYTOCIN 30 UNITS/NS 500 ML 30 UNITS/500 ML BAG IV CONT (05:50)
[2025-05-22] MEDS: LACTATED RINGERS 1,000 ML 125 ML IV CONT ×3 (05:50→10:48)
--- NOTE | 2025-05-22 05:58 | LDADM ---
This patient, Karolina Eugene, was admitted to Labor/Delivery/Recovery 104 on 05/22/25 at 05:01. Plans for labor, pain management and were discussed with patient. Patient/family oriented to hospital policies and general routines including ID bracelet, bed and alarms, visiting hours, pain management, procedures, bathroom and other care routines, personal items, smoking policy, room service/diet and guest tray routines, security routines, and visiting hours. Patient/Family are encouraged to report perceived risks to care and to ask questions if they do not understand what they are told or what they should do. See OBIX for further documentation.
[2025-05-22 06:40] LABS: Syphilis IgG/IgM Antibody Non-Reactive (Nonreactive)
--- NOTE | 2025-05-22 08:19 | WPDANESEPP ---
Anes - Eval Pre Procedure Procedure: labor epidural Date/Time: 05/22/25 08:19 Preop Diagnosis: labor pain Pre Op Diagnosis: IOL Patient Data Age: 34 Gender: F Height: 1.6 m Weight: 87 kg Last Vital Signs Temp 36.4 C L 05/22/25 05:33 Pulse 84 05/22/25 06:58 BP 107/71 05/22/25 06:58 Pulse Ox 100 05/22/25 08:16 Allergies Allergy/AdvReac Type Severity Reaction Status Date / Time No Known Allergies Allergy Verified 05/22/25 05:43 Home Medications ?Medication ?Instructions ?Recorded ?Confirmed ?Type vit no.95-ferrous 1 tablet PO DAILY 05/14/25 05/22/25 History fumarate 28 mg-folic acid 800 mcg tablet () Laboratory Tests 05/22/25 05:27 WBC 10.5 H K/mm3 (4.5-10.0) RBC 4.65 M/mm3 (4.2-5.4) Hgb 11.5 L g/dL (12.0-15.0) Hct 36.5 L % (37.0-47.0) MCV 78.5 L fl (80-100) MCH 24.7 L pg (26-34) MCHC 31.5 L g/dl (32-36) RDW 14.0 % (11.5-14.5) Plt Count 264 k/mm3 (150-375) MPV 11.9 H fl (7.4-10.4) Immature Gran % (Auto) 0.3 % (0-0.5) Neut % (Auto) 60.5 % (45.5-73.1) Lymph % (Auto) 28.8 % (18.3-44.2) [place] % (Auto) 9.3 H % (2.6-8.5) Eos % (Auto) 0.4 % (0-4.4) Baso % (Auto) 0.7 % (0.2-1.2) Lymph # (Auto) 3.02 K/mm3 (0.9-3.2) [place] # (Auto) 1.0 H K/mm3 (0.1-0.6) Eos # (Auto) 0.0 K/mm3 (0-0.3) Baso # (Auto) 0.1 K/mm3 (0.0-0.1) Abs Immat Gran (auto) 0.03 K/mm3 (0.00-0.031) Absolute Neuts (auto) 6.4 K/mm3 (1.3-6.7) Absolute Nucleated RBC 0.000 K/mm3 (0.0-0.012) Nucleated RBC % 0.0 % (0.0-0.2) Syphilis IgG/IgM Ab Non-reactive (Nonreactive) Blood Type O Positive Antibody Screen Negative Patient hx anesthesia problems: post op nausea/vomiting Family hx anesthesia problems: none Results Review: All pre-operative results and documents have been reviewed as part of the pre-operative evaluation. COUNT INCLUDES THE [facility] Past Medical History Medical History Urethral diverticulum Surgical History Surgical History History of repair of anterior cruciate ligament of right knee Hx of breast reduction, elective History of repair of anterior cruciate ligament of left knee Family History Family History Father Hypertension Atrial fibrillation Mother Breast cancer Hypertension Grandparent Breast cancer Social History Social History Smoking status: Never smoker Second hand tobacco smoke exposure: No Alcohol intake: current Drinks per week: 2 Alcohol use details: beer/wine Substance use: never Do You Feel Safe in your Home?: Yes Lack of Transportation: No Lack of Food: Never True Current Housing: I Have Housing Concerned About Future Housing: No Difficulty Paying Gas/Electric Bills: No Difficulty Paying for Meds: No Currently Unemployed: No Education: Bachelor's Degree Difficulty w/ Childcare or Family Care: No Living arrangements: with family 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
[2025-05-22] MEDS: PHENYLEPHRINE 1,000 MCG/10 ML SYRINGE 100 MCG IV PUSH (08:47)
--- NOTE | 2025-05-22 09:13 | WPDOBADMIT ---
Obstetrics - Admit Note Admission Note: record reviewed. No pertinent additions to the history and/or any subsequent changes in the physical findings that are not consistent with the expected course of the were found. Additions to the history and/or subsequent changes in the physical findings follow. IOL, IVF 39.6 weeks gestation, SVE 260/-2 AROM large amount of clear, odorless fluid, anticipate vaginal delivery
--- NOTE | 2025-05-22 15:10 | PM.OBPRVD ---
OB - Vaginal Delivery Note Procedure Delivery date: 05/22/25 Events: Other (IVF) Induction method: AROM and Per Pitocin Protocol Delivery monitor: External FHT and Internal Uterine Route of delivery: Episiotomy description: None Laceration Description: None Specimen: No Quantitative Blood Loss (ml): 75 Anesthesia type: Epidural Disposition: Floor Complications: No immediate complications Baby Date of : 05/22/25 Time of : 02:57 Gestational Age by Date: 39 Infant gender: Female presentation: vertex position: Other (compound presentation left arm) Placenta delivery description: Spontaneous Cord Vessel Description: 3 Vessels, Clamped/Cut and Delayed Cord Clamping score one minute: 8 score five minutes: 9
[2025-05-22] MEDS: OXYTOCIN 30 UNITS/NS 500 ML 30 UNITS/500 ML BAG 125 UNITS IV CONT (16:07)
[2025-05-22] MEDS: BENZOCAINE 20% AER SPR (*SP) 56 GM CAN 1 SPRAY TOPICAL (17:09)
[2025-05-22] MEDS: WITCH HAZEL 40 PADS 1 PAD TOPICAL (17:09)
[2025-05-22] MEDS: ACETAMINOPHEN 325 MG TABLET 650 MG PO (17:09)
[2025-05-22] MEDS: DOCUSATE SODIUM 100 MG CAPSULE PO (17:10)
[2025-05-22] MEDS: IBUPROFEN 600 MG TABLET PO (17:10)
[2025-05-23] MEDS: ACETAMINOPHEN 325 MG TABLET 650 MG PO (00:04)
[2025-05-23] MEDS: IBUPROFEN 600 MG TABLET PO ×2 (00:05→08:09)
[2025-05-23 03:20] VITALS: BP 100/69; PULSE 72; RESP 16; TEMP 36.7; O2SAT 100
[2025-05-23 03:32] VITALS: PULSE 90; O2SAT 97
[2025-05-23 05:06] LABS: Hematocrit 31.4 % (37.0-47.0); Hemoglobin 9.9 g/dL (12.0-15.0)
[2025-05-23] MEDS: DOCUSATE SODIUM 100 MG CAPSULE PO ×2 (08:09→17:02)
[2025-05-23] MEDS: MULTIVIT/MIN/PREN/FOL AC/IRON TABLET 1 TAB PO (08:09)
[2025-05-23] MEDS: POLYSACCHARIDE IRON COMPLEX 150 MG CAPSULE PO ×2 (08:09→17:02)
[2025-05-23 08:10] VITALS: BP 101/73; PULSE 77; RESP 16; TEMP 36.4; O2SAT 100
[2025-05-23] MEDS: DIBUCAINE 1% OINTMENT 30 GM TUBE 1 APPLIC TOPICAL (08:11)
[2025-05-23 08:12] VITALS: BP 101/73; PULSE 74; PULSE 77; O2SAT 100
--- NOTE | 2025-05-23 10:09 | P.PNOB_ITS ---
OB - PN: Subj Subjective Date/time seen: 05/23/25 10:09 Patient comments: no complaints, pain well controlled, incisional pain, tolerating diet and flatus present OB - PN: Obj Data Labs 05/23/25 04:59 Labs: Laboratory Results - last 24 hr 05/23/25 04:59 Hgb 9.9 L Hct 31.4 L OB - PN A/P Plan day: 1 Plan: routine care Comments: No problems, routine care Time Spent With Patient Time: Total time spent is greater than 50% in coordination of care (as documented) at patient's floor/unit and/or counseling patient: Exam 2 Const: General: comfortable, no acute distress and alert Resp: Effort & Inspection: normal respiratory effort Auscultation: no crackles, no rales and no rhonchi Cardio: Rate: regular rate Heart sounds: no click, no murmurs and no rubs GI: Inspection: non-distended GI Palp: No Tenderness to palpation present (GI) Auscultation: normal bowel sounds Other: Incision - CDI Extrem: General: normal to inspection, no pedal edema and no calf tenderness
--- NOTE | 2025-05-23 10:10 | P.DS_ITS ---
DS: Admitting Diagnosis Discharge Date 05/23/2025 Admitting Diagnosis Term DS: Discharge Diagnosis Discharge Diagnosis (1) Term delivered: Code(s): O80 - Encounter for full-term uncomplicated delivery Status: Acute OB - DS: Summary OB Procedures : None OB Procedures Intrapartum: Spontaneous Vag Delivery OB Procedures: : None Peripartum Data Laceration Description: None Episiotomy description: None Time Spent with Patient Time attestation: Total time spent providing and/or coordinating discharge services: DS: Data Data Completed and Pending Labs on day of discharge: Labs from last 24 hours 05/23/25 04:59 Hgb 9.9 L Hct 31.4 L Discharge Plan Discharge Consulting providers: Sanju Schneider Discharging Clinician: Sanju Schenider Patient Disposition: Home Activity: pelvic rest Diet: regular Patient Instructions: Antibiotic Form Patient Language: Hungarian Stand Alone Forms: General Discharge Information Follow-up/Referrals: Sanju Schneider MD [Physician] - Discharge Medications: Continued PNV cmb#95-ferrous fumarate-FA [] 28 mg iron- 800 mcg tablet 1 tablet PO DAILY Date of admission: 05/22/25 05:01 Primary Care Provider: Laura Cespedes Admitting Provider: Sanju Schneider Attending physician on admission: Jihan Lyon Condition: Stable
[2025-05-23 12:05] VITALS: PULSE 74; RESP 16; TEMP 36.5; O2SAT 99
[2025-05-23 12:06] VITALS: BP 100/66; PULSE 72
--- NOTE | 2025-05-23 14:42 | WPDANLDPN2 ---
Anes-Prog Note L&D Date/Time: 05/23/25 14:42 Comfortable throughout: labor and delivery Neuraxial method: epidural Epidural/Spinal procedure site: clean & non-tender Neuro status: Neuro function grossly intact. Cardiovascular status: normal Respiratory status: normal Airway patency: baseline Mental status: baseline Post-Op hydration status: normal Vital Signs: Last Vital Signs Temp 97.7 F 05/23/25 12:05 Pulse 72 05/23/25 12:06 Resp 16 05/23/25 12:05 BP 100/66 05/23/25 12:06 Pulse Ox 99 05/23/25 12:05 O2 Del Method Room Air 05/22/25 18:30 Pain score (VAS): 0/10 I/O: Intake & Output 05/22/25 05/23/25 05/23/25 23:59 07:59 15:59 Intake Total 1272.9 Output Total 105 Balance 1167.9 Post-procedural complaints: none Patient feedback: Patient satisfied with anesthetic care.
--- NOTE | 2025-05-23 14:49 | PC.NURSE ---
Patient viewed the discharge video Mother & Baby Care, The First Two Weeks. Patient was given the opportunity and encouraged to ask questions. Patient verbalized understanding of information shared and has been given the mother/baby guide for home reference.
[2025-05-23] MEDS: WITCH HAZEL 40 PADS 1 PAD TOPICAL (17:02)
[2025-05-24 09:25] VITALS: BP 119/73; PULSE 81; RESP 18; TEMP 36.7; O2SAT 100
== END 2025-05-23 17:41 | disposition home or self-care (01) | DRG 807 ==
LOC: ANHLDR 05:05 → ANHOBPP 17:41
PROVIDERS: Advanced Practice Midwife; Admitting Provider Obstetrics & Gynecology; PCP Family Medicine; Visit Provider Obstetrics & Gynecology
DX: O62.3 Precipitate labor (principal); Z37.0 Single live birth; O32.6XX0 Maternal care for compound presentation, not applicable or unspecified; Z3A.39 39 weeks gestation of pregnancy
CPT/HCPCS: 36415; 85014; 85018; 85025; 86593; 86850; 86900; 86901; A9270; J2371; J2590; J2795; J7120